=== PATIENT | male | born 1975 | race African-American/Black ===

== ENCOUNTER 2023-01-26 08:25 | Emergency (ER) | payer OTHER ==
[~2023-01-26] VITALS: Ht 172.7 cm; Wt 91.0 kg
[2023-01-26 08:32] VITALS: BP 140/80
[2023-01-26] MEDS ORDERED: ONDANSETRON 4MG ODT PO ONE (08:45)
[2023-01-26] MEDS ORDERED: KETOROLAC 15MG/ML VIAL IM ONE (08:45)
[2023-01-26 09:09] LABS: BASOPHILS % 0.6 % (0.0-2.0); EOSINOPHILS % 0.1 % (0.0-5.0); HEMATOCRIT. 46.4 % (42.0-52.0); HEMOGLOBIN. 15.2 g/dL (14.0-18.0); LYMPHOCYTES % 16.1 % (20.0-50.0); MEAN CORPUSCULAR HEMOGLOBIN 27.1 pg (28.0-32.0); MEAN CORPUSCULAR VOLUME 82.8 fL (80.0-94.0); MONOCYTES % 2.6 % (2.0-8.0); NEUTROPHILS % 80.6 % (40.0-76.0); PLATELET 247 x1000/uL (130-400); RED CELL DISTRIBUTION WIDTH 15.1 % (11.6-14.6)
[2023-01-26 09:14] LABS: CLARITY URINE CLEAR (CLEAR); COLOR URINE YELLOW (YELLOW); KETONES URINE NEGATIVE (NEGATIVE); LEUKOCYTE ESTERASE URINE NEGATIVE (NEGATIVE); NITRITE URINE NEGATIVE (NEGATIVE); OCCULT BLOOD URINE 3+ (NEGATIVE); PROTEIN URINE NEGATIVE (NEGATIVE); SPECIFIC GRAVITY URINE 1.009 (1.005-1.030); UROBILINOGEN URINE 0.2 E.U./dL (0.2-1.0)
[2023-01-26 09:15] LABS: CHLORIDE 104 mEq/L (98-107)
[2023-01-26] MEDS ORDERED: IBUP-2029 MT (10:42)
[2023-01-26] MEDS ORDERED: TAMS-11 MT (10:42)
== END 2023-01-26 11:11 | disposition home or self-care (01) ==
LOC: ER 08:25
DX: N13.2 Hydronephrosis with renal and ureteral calculous obstruction (principal)
CPT/HCPCS: 36415; 74176; 80053; 81003; 83690; 85025; 96372; 99285; J1885; Q0162; Z7610